=== PATIENT | female | born 1930 | race African-American/Black ===

== ENCOUNTER → 2016-10-10 | Outpatient (CLI) | payer MEDICARE, OTHER ==
[~2016-10-10] MED LIST: ARIC10TA PO; CEFU1TAB42 PO; CHOL1CAP6 PO; CLEAPOW6 PO; FERR324T4 PO; LEVO.1 PO; METO50TA PO; MIRTA15 PO; PROT40TA PO; QUET25 PO; SENN8.6T15 PO; TRAZ100 PO; TYLE500T PO; [UNRECOGNIZED DRUG - CODE] PO
--- NOTE | 2016-10-10 19:17 | EKG ---
Date Performed: 10/10/2016 Time Performed: 10:22:10 PTAGE: 85 years EKG: Sinus rhythm . Normal ECG PREVIOUS TRACING : 03/03/2014 12.10 DOCTOR: Juan Manuel Yuen Interpretating Date/Time 10/10/2016 19:15:52
== END ==
LOC: HCAV 10:00
PROVIDERS: ATTEND Ophthalmology
DX: Z01.810 Encounter for preprocedural cardiovascular examination (principal)
CPT/HCPCS: 93005